=== PATIENT | female | born 1960 | race Caucasian/White ===

== ENCOUNTER 2021-02-27 15:47 | Emergency (ER) | payer MEDICAID ==
[~2021-02-27] VITALS: Ht 172.7 cm; Wt 81.6 kg
[~2021-02-27 15:47] MED LIST: BACL10TA PO; HYDR12.56 PO; NITR100C6 PO; PANT40T PO; SIMV-13 PO; SUCR1TAB22 OR
[2021-02-28] MEDS ORDERED: ACETAMINOPHEN 500 MG TAB PO ONE (10:15)
[2021-02-28 18:25] VITALS: BP 150/44
== END 2021-02-28 20:50 | disposition home or self-care (01) ==
LOC: EDBD 15:47 → ER 15:47
DX: S50.311A Abrasion of right elbow, initial encounter (principal); Z79.899 Other long term (current) drug therapy; Z88.0 Allergy status to penicillin; Z88.5 Allergy status to narcotic agent; Z88.6 Allergy status to analgesic agent; W19.XXXA Unspecified fall, initial encounter; Y93.89 Activity, other specified; Y92.89 Other specified places as the place of occurrence of the external cause; Y99.8 Other external cause status
CPT/HCPCS: 73080

== ENCOUNTER 2023-04-21 10:10 | Emergency (ER) | payer MEDICAID ==
[~2023-04-21] VITALS: Ht 167.6 cm; Wt 90.9 kg
[~2023-04-21 10:10] MED LIST changes: -HYDR12.56 PO; +HYDR12.59 PO; -SIMV-13 PO; +SIMV40TA18 PO
[2023-04-21 10:38] VITALS: RESP 16
[2023-04-21] MEDS ORDERED: LIDOCAINE W/ EPINEPHRINE 1% 20ML VIAL ONE (10:39)
[2023-04-21] MEDS ORDERED: LIDOCAINE W/ EPINEPHRINE 1% 20ML VIAL ID ONE (10:45)
[2023-04-21 11:24] VITALS: BP 158/109; PULSE 75; RESP 16; TEMP 98.6; O2SAT 96
[2023-04-21] MEDS ORDERED: IBUPROFEN 800 MG TAB PO ONE (15:00)
[2023-04-21] MEDS ORDERED: ACETAMINOPHEN 500 MG TAB PO ONE (15:00)
== END 2023-04-21 14:41 | disposition home or self-care (01) ==
LOC: ER 10:10 → EDBD 10:10 → ER 14:41
DX: S01.01XA Laceration without foreign body of scalp, initial encounter (principal); S01.21XA Laceration without foreign body of nose, initial encounter; S01.81XA Laceration without foreign body of other part of head, initial encounter; M19.90 Unspecified osteoarthritis, unspecified site; E78.5 Hyperlipidemia, unspecified; I10 Essential (primary) hypertension; Z88.0 Allergy status to penicillin; Z88.8 Allergy status to other drugs, medicaments and biological substances; Z88.5 Allergy status to narcotic agent; Z79.899 Other long term (current) drug therapy; V89.2XXA Person injured in unspecified motor-vehicle accident, traffic, initial encounter; Y93.89 Activity, other specified; Y92.89 Other specified places as the place of occurrence of the external cause; Y99.8 Other external cause status
CPT/HCPCS: 12055; 99152; 99153

== ENCOUNTER 2023-04-23 09:18 | Emergency (ER) | payer MEDICAID ==
[~2023-04-23] VITALS: Ht 170.2 cm; Wt 102.1 kg
[2023-04-23 09:39] VITALS: BP 144/90; PULSE 61; RESP 16
[2023-04-23 10:44] VITALS: O2SAT 98
== END 2023-04-23 10:47 | disposition home or self-care (01) ==
LOC: ER 09:18
DX: S01.81XD Laceration without foreign body of other part of head, subsequent encounter (principal); I10 Essential (primary) hypertension; E78.5 Hyperlipidemia, unspecified; Z79.899 Other long term (current) drug therapy; Z88.0 Allergy status to penicillin; Z88.5 Allergy status to narcotic agent; Z88.6 Allergy status to analgesic agent; X58.XXXD Exposure to other specified factors, subsequent encounter

== ENCOUNTER 2023-04-28 09:55 | Emergency (ER) | payer MEDICAID ==
[~2023-04-28] VITALS: Ht 213.4 cm; Wt 101.8 kg
[2023-04-28 10:12] VITALS: BP 123/70; PULSE 59; RESP 18; TEMP 98.1; O2SAT 95
== END 2023-04-28 10:29 | disposition home or self-care (01) ==
LOC: ER 09:55
DX: S01.81XD Laceration without foreign body of other part of head, subsequent encounter (principal); E78.5 Hyperlipidemia, unspecified; I10 Essential (primary) hypertension; Z88.0 Allergy status to penicillin; Z88.6 Allergy status to analgesic agent; X58.XXXD Exposure to other specified factors, subsequent encounter

== ENCOUNTER 2025-06-20 14:48 | Inpatient (IN) | payer MEDICAID, OTHER ==
[~2025-06-20] VITALS: Ht 170.2 cm; Wt 110.0 kg
[~2025-06-20 14:48] MED LIST changes: -SUCR1TAB22 OR; +SUCR1TAB31 OR
--- NOTE | 2025-06-20 15:05 | ECG ---
[facility] Test Date: 2025-06-20 Test Time: 14:59:20 Pat Name: LUDWIN TRIANA Department: Room: Gender: F [place] Pinner: ER : 1960 Requested By: DORIS HOLCOMB Order Number: [id number] Reading MD: Measurements Intervals [place] Rate: 58 P: 24 FL: 160 QRS: 41 QRSD: 106 T: 15 QT: 441 QTc: 434 Interpretive Statements Sinus rhythm RSR' in V1 or V2, right VCD or RVH Please click the below link to view image of tracing.
--- NOTE | 2025-06-20 15:18 | ED.PDOC ---
HPI (NEURO) HPI Comments 65-year-old female who presents to the ED with c/c of unsteady gait Patient states that earlier this afternoon she was dizzy unsteady on her feet tripped and fell Patient states that she fell backwards and hit the posterior head Patient denies any associated off of consciousness Patient states she has since been having associated dizziness and was brought by friend to the ED Patient in the ED noted to have a bleeding from posterior scalp region with now bleeding controlled patient otherwise states she has been unsteady on her feet and states that she has had 6 episodes of unsteady gait in the past 6 weeks Patient states she has not seen primary care or any provider for these symptoms Patient in the ED otherwise has not noted blood pressure 142/69 heart rate 58 but otherwise stable vitals including temperature 97.2 F respiratory me 18 and O2 saturation of 96% on room air Patient had the ED with the was alert and oriented x4 and able to answer all qu estions Past Medical history: HTN, Hyperlipidemia, arthritis Past Surgical history: Right and left knee surgery, shoulder surgery, Medications: denies Allergies: aspirin, codeine, penicillins Social history: denies ETOH, denies tobacco use, denies drug use TRIANA: DIZZY. HPI: Poor Historian. Past Medical History: Past Surgical History: REVIEW OF SYSTEMS: CONSTITUTIONAL: Denies acute: fever, diaphoresis, chills, generalized weakness HEAD: Denies acute: headache, photophobia Eyes: Denies acute: Double vision, vision loss, eye pain, eye discharge. EARS: Denies acute: tinnitus, hearing loss, ear discharge, ear pain, THROAT: Denies acute: sore throat, swelling, difficulty swallowing , pain with swallowing, change in voice. NECK: Denies acute: neck pain, neck swelling, stiff neck. HEART: Denies acute : chest pain, palpitations, LUNGS: Denies acute: SOB, wheezing, cough, hemoptysis ABDOMEN: Denies acute: abdominal pain, nausea, vomiting diarrhea, melena , hematemesis, hematochezia SKIN: Denies acute: rash, redness, lesions, itchiness. EXTREMITIES: Denies acute: calf pain, numbness, tingling, weakness, denies pain in extremity. Denies acute: Low back pain. Neuro: Denies acute: focal neurological deficit, motor or sensory focal neurological deficit, tremors, seizure like activity, confusion, dizziness, change in mental status, loss of bowel or bladder function, cauda equina like symptoms. : Denies acute: dysuria, hematuria, flank pain, increase in urinary frequency. PSYCH: Denies acute: hallucination, suicidal ideation, homicidal ideation. PHYSICAL EXAM: General: ----no----acute distress, awake and alert. Head: normocephalic,. Patient has a occipital small scalp laceration. Cervical spine: Palpation of the posterior midline of the cervical spine reveals no focal swelling, erythema, focal tenderness to palpation. Patient has normal range of motion. Neck: supple, trachea is midline, no swelling. Throat: Normal phonation. Eyes:, no erythema, no purulent discharge, no proptosis, no icterus. Heart: regular rate, regular rhythm, no significant murmur appreciated. Lungs: no apparent respiratory distress, Able to speak in full sentences. No wheezing, no rhonchi, no crackles. No stridors Clear to auscultation bilaterally. Abdomen: non tender to palpation, non distended, soft, no guarding, no rebound, + bowel sounds. Obese Neuro: Awake, Alert, oriented to name, self, situation, follows commands GCS=15. Speech is normal. Skin: no petechia, no purpura, no cyanosis, non-pale, not jaundice. Lower extremities: --trace bilateral- Pitting edema no deformity, no focal swelling, no calf TTP. Makes eye contact. moves all four extremities. Face: no apparent facial droop. Ambulating in the ED independently. PERRLA, EOM-I CN 2-12 are grossly intact, No nystagmus. No nuchal rigidity, Kernig's sign, Brudzinski's sign, no meningeal signs. ED COURSE: DISCLAIMER: This medical document was created using an electronic medical record system with voice recognition software and computerized dictation system. Although this document has been carefully reviewed, there might still be some phonetic and typographical errors. Occasional wrong-word or "sound-alike" substitutions may have occurred due to the inherent limitations of voice recognition software. These areas are purely typographical due to imperfections of the software programs and do not reflect any compromise in the patient's medical care. Please read the chart carefully and recognize, using context, where these substitutions have occurred. Chief Complaint: Dizziness Time Seen by MD: 15:17 Primary Care Provider: CHRISTY Reviewed Notes: Medications, Allergies Information Source: Patient, Friend Mode of Arrival: Ambulatory Past Medical History PAST MEDICAL HISTORY: Arthritis, High Lipids, HTN Surgical History: Denies all surgeries ARCHITECTURAL COATING FINISHER History: No Pertinent ARCHITECTURAL COATING FINISHER History Family History Family History: Reviewed,noncontributory to illness Social History Smoker: Non-Smoker Alcohol: Denies ETOH Use Drugs: Denies Drug Use Lives In: Home EKG EKG : Pulse Rate (adult): 58 [place]: Normal Cardiac Rhythm: NSR Block: None Hypertrophy: None ST: Normal Comments T-wave inversion lead 3 Was a procedure done? Was a procedure done?: Yes Sedation Sedation?: No Other Procedure Procedure suture placement for 3 cm laceration to posterior head Indication laceration to posterior head Prep wound to posterior head has been cleaned with normal saline and pat dried. 3 sutures placed Success Patient tolerated well, bleeding under control. Informed consent obtained: Yes Risks, benefits, and alternati: Yes X-Ray, Labs, Meds, VS Vital Signs Date Time Temp Pulse Resp B/P (MAP) Pulse Ox O2 Delivery O2 Flow Rate FiO2 06/20/25 21:07 145/80 (101) 06/20/25 20:27 98.1 46 16 171/73 (105) 96 98.1 06/20/25 16:29 98.9 53 18 152/78 (102) 96 98.9 06/20/25 15:18 58 06/20/25 14:59 58 06/20/25 14:49 97.2 58 18 142/69 96 97.2 Lab Test 06/20/25 20:55 06/20/25 17:23 06/20/25 15:55 06/20/25 15:03 Range/Units Prothrombin Time Pending Prothrombin Time INR Pending Activated Partial Thromboplast Time Pending Hemoglobin A1c Pending Phosphorus Level Pending Magnesium Level Pending Troponin I High Sensitivity 5 5 </=34 ng/L C-Reactive Protein High Sensitivity Pending Triglycerides Level Pending Cholesterol Level Pending LDL Cholesterol Pending HDL Cholesterol Pending Lipase Pending Vitamin B12 Level Pending Vitamin D 25-Hydroxy Pending Thyroid Stimulating Hormone (TSH) Pending White Blood Count 8.0 4.4-10.8 10^3/uL Red Blood Count 4.87 4.0-5.20 10^6/uL Hemoglobin 14.3 12.2-16.2 g/dL Hematocrit 41.2 36.0-46.0 % Mean Corpuscular Volume 84.6 80.0-100.0 fL Mean Corpuscular Hemoglobin 29.3 28.0-32.0 pg Mean Corpuscular Hemoglobin Concent 34.6 32.0-36.0 g/dL Red Cell Distribution Width 14.4 H 11.8-14.3 % Platelet Count 228 140-450 10^3/uL Mean Platelet Volume 8.7 6.9-10.8 fL Neutrophils (%) (Auto) 73.7 37.0-80.0 % Lymphocytes (%) (Auto) 14.3 10.0-50.0 % Monocytes (%) (Auto) 9.4 0.0-12.0 % Eosinophils (%) (Auto) 2.1 0.0-7.0 % Basophils (%) (Auto) 0.5 0.0-2.0 % Neutrophils # (Auto) 5.9 1.6-8.6 10 ^3/uL Lymphocytes # (Auto) 1.1 0.4-5.4 10 ^3/uL Monocytes # (Auto) 0.7 0-1.3 10 ^3/uL Eosinophils # (Auto) 0.2 0-0.8 10 ^3/uL Basophils # (Auto) 0 0-0.2 10 ^3/uL Nucleated Red Blood Cells 0.0 % Sodium Level 142 136-145 mmol/L Potassium Level 3.9 3.5-5.1 mmol/L Chloride Level 102 98-107 mmol/L Carbon Dioxide Level 30 20-31 mmol/L Anion Gap 10 5-15 Blood Urea Nitrogen 14 9-23 mg/dL Creatinine 0.94 0.550-1.02 mg/dL Glomerular Filtration Rate Calc 67 >90 mL/min BUN/Creatinine Ratio 14.9 10.0-20.0 Serum Glucose 104 74-106 mg/dL Calcium Level 10.2 8.7-10.4 mg/dL Total Bilirubin 0.5 0.2-1.0 mg/dL Aspartate Amino Transferase (AST) 37 13-40 U/L Alanine Aminotransferase (ALT) 41 H 7-40 U/L Alkaline Phosphatase 71 46-116 U/L Total Protein 7.3 5.7-8.2 g/dL Albumin 4.5 3.2-4.8 g/dL POC Glucose 103 70-106 mg/dl Test 06/20/25 14:58 Range/Units Urine Color Yellow Yellow Urine Clarity Turbid H Clear Urine pH 6.0 5.0-9.0 Urine Specific [place] 1.029 1.001-1.035 Urine Protein 1+ H Negative Urine Ketones Negative Negative Urine Blood Negative Negative /uL Urine Nitrite Negative Negative Urine Bilirubin Negative Negative Urine Urobilinogen Normal Negative mg/dL Urine Leukocyte Esterase 3+ Negative /uL Urine RBC 15 0 - 4 /hpf Urine Microscopic WBC 45 H 0-5 /HPF Urine Squamous Epithelial Cells Few <5 /hpf Urine Bacteria None seen None Seen /hpf Urine Hyaline Casts Few 0 - 2 /lpf Urine Mucus Few None Seen Urine Glucose Normal Normal mg/dL Current Medications Medications (Trade) Dose Ordered Sig/Candy Route Start Time Stop Time Status Last Admin Ceftriaxone Sodium 50 ml @ 100 mls/hr ONCE ONCE IV 06/20/25 16:30 06/20/25 16:59 DC 06/20/25 18:01 Acetaminophen/ Hydrocodone Bitart ([place] 5/325MG Tab) 1 tab ONCE ONCE PO 06/20/25 18:30 06/20/25 18:31 DC 06/20/25 18:33 [place] [address] Ph: [phone] DIAGNOSTIC IMAGING Diagnostic Imaging Report : [id number] Signed PATIENT: LUDWIN TRIANA ACCT: [id number] UNIT: [id number] : 1960 LOC: ER ROOM / BED: / AGE / SEX: 65 / F ADM STATUS: REG ER SERVICE [id number] ORDERING PHYSICIAN: DORIS HOLCOMB DO PROCEDURE(s): HWOCT - HEAD WITHOUT CONTRAST REASON: FALL, DIZZY, HEAD INJURY ORDER NUMBER(s): [id number], ACCESSION NUMBER(s): [id number] EXAM: CT HEAD WITHOUT CONTRAST INDICATION: FALL, DIZZY, HEAD INJURY TECHNIQUE: CT images of the head were obtained without administration of IV contrast. CT scans at this facility use dose modulation, iterative reconstruction, and/or weight based dosing when appropriate to reduce radiation dose to as low as reasonably achievable. COMPARISON: None FINDINGS: PARENCHYMA: No acute hemorrhage. There is no mass effect, midline shift, or herniation. There is preservation of the taylor white differentiation. Mild scattered hypoattenuation along the periventricular, centrum semiovale, and deep white matter tracts, which are nonspecific however statistically most likely represent chronic microvascular ischemic change. VENTRICLES: No hydrocephalus. EXTRA-AXIAL SPACES: No extra-axial fluid collections. OTHER: The bony structures are intact. Visualized portions of the paranasal sinuses and mastoid air cells are clear. IMPRESSION: 1. No CT evidence of an acute intracranial abnormality. ATED BY: JUAN POLLARD MD DICTATED DATE/TIME: 06/20/251536 SIGNED BY: JUAN POLLARD MD SIGNED DATE/TIME: 06/20/25 1537 CC: [place] [address] Ph: [phone] DIAGNOSTIC IMAGING Diagnostic Imaging Report : [id number] Signed PATIENT: LUDWIN TRIANA ACCT: [id number] UNIT: [id number] : 1960 LOC: ER ROOM / BED: / AGE / SEX: 65 / F ADM STATUS: REG ER SERVICE 1502 ORDERING PHYSICIAN: DORIS HOLCOMB DO PROCEDURE(s): CS2 - CERVICAL WITHOUT CONTRAST REASON: FALL ORDER NUMBER(s): [id number], ACCESSION NUMBER(s): [id number] EXAM: CT CERVICAL WITHOUT CONTRAST INDICATION: FALL EXAM DATE: 06/20/2025 03:07 PM COMPARISON: None TECHNIQUE: Multiple axial CT images of the cervical spine were obtained using bone algorithm. Axial and coronal reformatting was done. Bone and soft tissue windows were reviewed. Radiation Dose Information: CT Dose: CTDI volume is 26.88 mGy. Dose-length product is 595.13 mGy*cm Findings: There is no evidence of an acute fracture or spondylolisthesis. The vertebral body heights are well-maintained. The craniocervical junction and dens are intact. Mild spondylosis. No spinal canal stenosis. There is flattening of the cervical lordosis. The thyroid gland is unremarkable. The lung apices demonstrate no acute abnormality. The paraspinal and neck soft tissues appear within normal limits. Impression: 1. No evidence of an acute fracture. ATED BY: CONCHA SOMERS DO DICTATED DATE/TIME: 06/20/251542 SIGNED BY: CONCHA SOMERS DO SIGNED DATE/TIME: 06/20/251542 CC: Patient Education/Counseling: Diagnosis, Treatment Family Education/Counseling: Diagnosis, Treatment Departure 1 Departure Time of Disposition: 15:51 Impression: Primary Impression: Unsteady gait Additional Impressions: Frequent falls Closed head injury UTI (urinary tract infection) Scalp laceration Disposition: ADMITTED INPATIENT Admit to: [facility] Condition: Guarded Discharged With: Self Critical Care Note Critical Care Time?: No Heart Score Heart Score: Heart Score Response (Comments) Value History Moderate Suspicious 1 EKG Normal 0 Age >65 2 Risk Factors 1 or 2 risk factors 1 Total 4 I personally scribed for DORIS HOLCOMB DO ([email or web address]) on 06/20/25 at 15:18. Electronically submitted by Angie Emanuel (RADHA). I personally scribed for DORIS HOLCOMB DO ([email or web address]) on 06/20/25 at 16:06. Electronically submitted by Angie Emanuel (RADHA). I personally scribed for DORIS HOLCOMB DO ([email or web address]) on 06/20/25 at 16:29. Electro nically submitted by Angie Emanuel (RADHA). I personally scribed for DORIS HOLCOMB DO ([email or web address]) on 06/20/25 at 18:24. Letty ctronically submitted by Glen Almendarez ([facility]3]). I personally scribed for DORIS HOLCOMB DO ([email or web address]) on 06/20/25 at 19:35. Electronically submitted by Angie MOSELEY). I personally scribed for DORIS HOLCOMB DO ([email or web address]) on 06/20/25 at 21:24. Electronically submitted by Angie Emanuel (RADHA). DORIS HOLCOMB DO Jun 20, 2025 15:18
--- NOTE | 2025-06-20 15:39 | DVH ---
EXAM: CT HEAD WITHOUT CONTRAST INDICATION: FALL, DIZZY, HEAD INJURY TECHNIQUE: CT images of the head were obtained without administration of IV contrast. CT scans at [facility] facility use dose modulation, iterative reconstruction, and/or weight based dosing when appropriate to reduce radiation dose to as low as reasonably achievable. COMPARISON: None FINDINGS: PARENCHYMA: No acute hemorrhage. There is no mass effect, midline shift, or herniation. There is pres ervation of the taylor white differentiation. Mild scattered hypoattenuation along the periventricular, centrum semiovale, and deep white matter tracts, which are nonspecific however statistically most li jarrett represent chronic microvascular ischemic change. VENTRICLES: No hydrocephalus. EXTRA-AXIAL SPACES: No extra-axial fluid collections. OTHER: The bony structures are intact. Visualized portions of the paranasal sinuses and mastoid air cells are clear. IMPRESSION: 1. No CT evidence of an acute intracranial abnormality.
--- NOTE | 2025-06-20 15:44 | DVH ---
EXAM: CT CERVICAL WITHOUT CONTRAST INDICATION: FALL EXAM DATE: 06/20/2025 03:07 PM COMPARISON: None TECHNIQUE: Multiple axial CT images of the cervical spine were obtained using bone algorithm. Axial a nd coronal reformatting was done. Bone and soft tissue windows were reviewed. Radiation Dose Information: CT Dose: CTDI volume is 26.88 mGy. Dose-length product is 595.13 mGy*cm Findings: There is no evidence of an acute fracture or spondylolisthesis. The vertebral body heights are well-m aintained. The craniocervical junction and dens are intact. Mild spondylosis. No spinal canal stenosis. There is flattening of the cervical lordosis. The thyroid gland is unremarkable. The lung apices demonstrate no acute abnormality. The paraspinal a nd neck soft tissues appear within normal limits. Impression: 1. No evidence of an acute fracture.
[2025-06-20 15:55] LABS: Urine Protein, UAD 1+ (Negative)
[2025-06-20 16:09] LABS: Hematocrit 41.2 % (36.0-46.0); Hemoglobin 14.3 g/dL (12.2-16.2); Mean Corpuscular Hemoglobin 29.3 pg (28.0-32.0); Mean Corpuscular Volume 84.6 fL (80.0-100.0); Nucleated Red Blood Cells % 0.0 %
[2025-06-20 16:23] LABS: Albumin 4.5 g/dL (3.2-4.8); Alkaline Phosphatase 71 U/L (46-116); Anion Gap 10 (5-15); BUN/Creatinine Ratio 14.9 (10.0-20.0); Blood Urea Nitrogen 14 mg/dL (9-23); Calcium 10.2 mg/dL (8.7-10.4); Carbon Dioxide 30 mmol/L (20-31); Chloride 102 mmol/L (98-107); Glucose 104 mg/dL (74-106); Potassium 3.9 mmol/L (3.5-5.1); Sodium 142 mmol/L (136-145); Total Protein 7.3 g/dL (5.7-8.2)
[2025-06-20 16:24] LABS: Bilirubin, Total 0.5 mg/dL (0.2-1.0)
[2025-06-20 16:27] LABS: Alanine Aminotransferase 41 U/L (7-40)
[2025-06-20] MEDS: HYDROcodone-ACET 5/325MG TAB PO ONE (18:33)
[2025-06-20] MEDS ORDERED: HYDROcodone-ACET 5/325MG TAB PO PRN (21:45)
[2025-06-20 21:52] LABS: Magnesium 2.1 mg/dL (1.6-2.6); Triglycerides 69.0 mg/dL (< 150)
[2025-06-20 21:53] LABS: INR 0.97 (0.9-1.15); Partial Thromboplastin Time 23.0 SEC (24.5-34.5); Prothrombin Time 10.3 sec (9.3-11.8)
[2025-06-20 21:55] LABS: Cholesterol 202.0 mg/dL (< 200); HDL Cholesterol 80.0 mg/dL (40-59)
[2025-06-20 22:05] LABS: Lipase 32.0 U/L (12-53)
[2025-06-20 22:16] VITALS: PULSE 54; RESP 17; O2SAT 98
[2025-06-20 22:50] LABS: Amphetamine Screen, Urine Neg (NEGATIVE); Barbiturate Scree,Urine Neg (NEGATIVE); Benzodiazephine Screen, Urine Neg (NEGATIVE); Cannabinoid Screen, Urine Neg (NEGATIVE); Cocaine Screen, Urine Neg (NEGATIVE); Opiate Scree,Urine Neg (NEGATIVE); Phencyclidine Screen, Urine Neg (NEGATIVE)
[2025-06-20] MEDS: hydrALAZINE HCL 20 MG/ML VL IV ONE (22:57)
--- NOTE | 2025-06-20 23:02 | DVH ---
Carotid Duplex Clinical History: Presyncope Comparison: None Technique: Duplex doppler evaluation of the extracranial carotid and vertebral arteries including color doppler and spectral/pulsed waveform analysis was performed. Findings: RIGHT SIDE: The peak systolic velocities are 69 cm/s in the CCA, 88 cm/s in the ICA. The ICA/CCA ratio is 1.3. The external carotid artery is patent with peak systolic velocity of 51 cm/s proximally. There is appropriate antegrade flow in the right vertebral artery. LEFT SIDE: The peak systolic velocities are 71 cm/s in the CCA, 78 cm/s in the ICA. The ICA/CCA ratio is 1.1. The external carotid artery is patent with peak systolic velocity of 46 cm/s proximally. There is appropriate antegrade flow in the left vertebral artery. IMPRESSION: No hemodynamically significant stenosis noted in the right carotid system. No hemodynamically significant stenosis noted in the left carotid system. Reference: Radiology 2003; 229:340-346 Normal ICA PSV is <125 cm/sec and no plaque or intimal thickening is visible sonographically addition al criteria include ICA/CCA PSV ratio <2.0 and ICA EDV <40 cm/sec <50% ICA stenosis ICA PSV is <125 cm/sec and plaque or intimal thickening is visible sonographically additional criteria include ICA/CCA PSV ratio <2.0 and ICA EDV <40 cm/sec 50-69% ICA stenosis ICA PSV is 125-230 cm/sec and plaque is visible sonographically additional criter ia include ICA/CCA PSV ratio of 2.0-4.0 and ICA EDV of 40-100 cm/sec 70% ICA stenosis but less than near occlusion ICA PSV is >230 cm/sec and visible plaque and luminal n arrowing are seen at taylor-scale and color doppler ultrasound (the higher the doppler parameters lie a saroj the threshold of 230 cm/sec, the greater the likelihood of severe disease) additional criteria i nclude ICA/CCA PSV ratio >4 and ICA EDV >100 cm/sec
[2025-06-20] MEDS: MEROPENEM 1GM IVPB 50 ML IV SCH (23:08)
[2025-06-20] MEDS: SODIUM CHLORIDE 0.9% 1,000 ML IV SCH (23:36)
[2025-06-21] VITALS (12 sets, daily range): BP systolic 112–150; BP diastolic 64–96; PULSE 47–60; RESP 14–18; TEMP 97.5–98.1; O2SAT 93–99
[2025-06-21] MEDS ORDERED: ONDANSETRON HCL 4 MG/2 ML VIAL IV PRN (00:15)
--- NOTE | 2025-06-21 00:38 | DVHHPRES ---
History of Present Illness Resident Creating Document: KALPESH WOLFF RESIDENT History of Present Illness This is a 65-year-old female with past medical history of hyperlipidemia, hypertension, gastritis, LISA, presented to the ER after sustaining a fall due to lightheadedness. She complained of intermittent lightheadedness starting 6 weeks ago, described 'everything around her moving in circles', without any aggravating or relieving factors. She had braced multiple falls in past. Yesterday, she was unable to brace her fall and hit her head on the floor, causing a laceration injury. She also complains of burning micturition and reports intermittent history of dysuria for several years, relieved with antibiotic therapy. Her most recent UTI was treated with Nitrofurantoin for 7 days with PCP. She also reports of episodic headaches that started after a fall injury in March 2022. Headaches are described as constant, pounding headache in frontal or temporal region of head, associated with occasional mild photophobia and tearing from her both eyes. She denies fever, chills, nausea, vomiting, neck rigidity, sick contact, chest pain or palpitations. Denies history of migraine. 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 Denies alcohol or recreational drug use. Not currently sexually active. Full code. Next of kin: sister Hermila Home medication: Baclofen, hydrochlorothiazide 12.5, pantoprazole, simvastatin, metoprolol succinate (started 2 months ago) Allergic history: Aspirin, codeine, penicillins Patient was examined at bedside today. Vitals show bradycardia. Patient is admitted for further evaluation and management. Review of Systems Eyes: Other Cardiovascular: Lt Headedness Genitourinary: Dysuria Musculoskeletal: other Neurological: Other (Headache) Allergies: Coded Allergies: Aspirin (Verified Allergy, Severe, 11/20/19) Codeine (Verified Allergy, Severe, 11/20/19) Penicillins (Verified Allergy, Severe, 11/20/19) Medications Current Medications Medications Dose Ordered Sig/Candy Route Start Time Stop Time Status Last Admin Dose Admin Meropenem 50 ml @ 17 mls/hr Q8HR IV 06/20/25 22:00 06/20/25 23:08 17 MLS/HR Acetaminophen/ Hydrocodone Bitart 1 tab Q4HPRN PRN PO 06/20/25 21:45 Sodium Chloride 1,000 ml @ 125 mls/hr Q8H IV 06/20/25 21:45 06/20/25 23:36 125 MLS/HR Hydrochlorothiazide 12.5 mg DAILY PO 06/21/25 10:00 Pantoprazole Sodium 40 mg DAILY@0600 PO 06/22/25 06:00 Atorvastatin Calcium 40 mg HS PO 06/21/25 22:00 Exam Vital Signs Vital Signs Date Time Temp Pulse Resp B/P (MAP) Pulse Ox O2 Delivery O2 Flow Rate FiO2 06/20/25 22:57 139/74 06/20/25 22:56 98.1 47 18 94 98.1 06/20/25 22:16 Room Air* 0 21 21 Exam General: Patient alert and oriented in person, place and time. Patient following commands. HEENT: Scalp laceration 2X1 cm with stapler stitches. Normocephalic, atraumatic, dry mucous membranes. Respiratory/pulmonary: Clear lungs bilaterally, vesicular murmurs present in almost all lung kam, no associated crackles or wheezes. Cardiovascular: Normal heart sounds S1 and S2 with no associated murmurs Abdomen: Abdomen nondistended, there is no pain to palpation in any of the abdominal quadrants, no palpable masses. Extremities: There is no peripheral edema present at the lower extremities. Peripheral Pulses: 3+ Radial (R). 3+ Radial (L). 3+ Dorsalis pedis (R). 3+ Dorsalis pedis(L) Skin: No rashes or pruritus, there is no sacral edema present at this time. Neurological: 5/5 motor strength in bilateral upper and lower extremities. Intact cranial nerves with no focal neurologic deficits. Labs/Xrays Labs Test 06/20/25 20:55 06/20/25 17:23 06/20/25 15:55 06/20/25 15:03 Range/Units Prothrombin Time 10.3 9.3-11.8 sec Prothrombin Time INR 0.97 0.9-1.15 Activated Partial Thromboplast Time 23.0 L 24.5-34.5 SEC Hemoglobin A1c 5.5 <5.7 % A1C Phosphorus Level 3.4 2.4-5.1 mg/dL Magnesium Level 2.1 1.6-2.6 mg/dL Troponin I High Sensitivity 5 </=34 ng/L C-Reactive Protein High Sensitivity 0.31 <1.0 mg/dL Triglycerides Level 69 < 150 mg/dL Cholesterol Level 202 H < 200 mg/dL LDL Cholesterol 115 H < 100 mg/dL HDL Cholesterol 80 H 40-59 mg/dL Lipase 32 12-53 U/L Vitamin B12 Level 469 211-911 pg/mL Vitamin D 25-Hydroxy 51.8 30.0-100 ng/mL Thyroid Stimulating Hormone (TSH) 1.64 0.55-4.78 uIU/mL White Blood Count 8.0 4.4-10.8 10^3/uL Red Blood Count 4.87 4.0-5.20 10^6/uL Hemoglobin 14.3 12.2-16.2 g/dL Hematocrit 41.2 36.0-46.0 % Mean Corpuscular Volume 84.6 80.0-100.0 fL Mean Corpuscular Hemoglobin 29.3 28.0-32.0 pg Mean Corpuscular Hemoglobin Concent 34.6 32.0-36.0 g/dL Red Cell Distribution Width 14.4 H 11.8-14.3 % Platelet Count 228 140-450 10^3/uL Mean Platelet Volume 8.7 6.9-10.8 fL Neutrophils (%) (Auto) 73.7 37.0-80.0 % Lymphocytes (%) (Auto) 14.3 10.0-50.0 % Monocytes (%) (Auto) 9.4 0.0-12.0 % Eosinophils (%) (Auto) 2.1 0.0-7.0 % Basophils (%) (Auto) 0.5 0.0-2.0 % Neutrophils # (Auto) 5.9 1.6-8.6 10 ^3/uL Lymphocytes # (Auto) 1.1 0.4-5.4 10 ^3/uL Monocytes # (Auto) 0.7 0-1.3 10 ^3/uL Eosinophils # (Auto) 0.2 0-0.8 10 ^3/uL Basophils # (Auto) 0 0-0.2 10 ^3/uL Nucleated Red Blood Cells 0.0 % Sodium Level 142 136-145 mmol/L Potassium Level 3.9 3.5-5.1 mmol/L Chloride Level 102 98-107 mmol/L Carbon Dioxide Level 30 20-31 mmol/L Anion Gap 10 5-15 Blood Urea Nitrogen 14 9-23 mg/dL Creatinine 0.94 0.550-1.02 mg/dL Glomerular Filtration Rate Calc 67 >90 mL/min BUN/Creatinine Ratio 14.9 10.0-20.0 Serum Glucose 104 74-106 mg/dL Calcium Level 10.2 8.7-10.4 mg/dL Total Bilirubin 0.5 0.2-1.0 mg/dL Aspartate Amino Transferase (AST) 37 13-40 U/L Alanine Aminotransferase (ALT) 41 H 7-40 U/L Alkaline Phosphatase 71 46-116 U/L Total Protein 7.3 5.7-8.2 g/dL Albumin 4.5 3.2-4.8 g/dL POC Glucose 103 70-106 mg/dl Test 06/20/25 14:58 Range/Units Urine Color Yellow Yellow Urine Clarity Turbid H Clear Urine pH 6.0 5.0-9.0 Urine Specific [place] 1.029 1.001-1.035 Urine Protein 1+ H Negative Urine Ketones Negative Negative Urine Blood Negative Negative /uL Urine Nitrite Negative Negative Urine Bilirubin Negative Negative Urine Urobilinogen Normal Negative mg/dL Urine Leukocyte Esterase 3+ Negative /uL Urine RBC 15 0 - 4 /hpf Urine Microscopic WBC 45 H 0-5 /HPF Urine Squamous Epithelial Cells Few <5 /hpf Urine Bacteria None seen None Seen /hpf Urine Hyaline Casts Few 0 - 2 /lpf Urine Mucus Few None Seen Urine Glucose Normal Normal mg/dL Urine Opiates Screen Neg NEGATIVE Urine Fentanyl Screen Neg NEGATIVE Urine Barbiturates Screen Neg NEGATIVE Urine Phencyclidine Screen Neg NEGATIVE Urine Amphetamines Screen Neg NEGATIVE Urine Benzodiazepines Screen Neg NEGATIVE Urine Cocaine Screen Neg NEGATIVE Urine Cannabinoids Screen Neg NEGATIVE SEPSIS Sepsis Screen Date sepsis recognized/suspect: Jun 20, 2025 Time Sepsis recognized/suspect: 2217 Recent Procedure: No On Antibiotic Therapy: No Respiratory Rate >20: No Heart Rate >90: No Temp<36 C (96.8 F) or >38.3 C: No SBP <90 or MAP <65 mmHG: No New Acute Mental Status Change: No Is the patient on CPAP, BIPAP,: No Physician Orders Complete Blood Count (06/21/25 04:00) Basic Metabolic Panel (06/21/25 04:00) Meropenem 1gm Ivpb (Merrem 1gm/50ml) (06/20/25 22:00) Hydrocodone-Acet 5/325mg Tab (Galvin 5/32 (06/20/25 21:45) Urine Bacterial Culture (06/20/25 21:43) Blood Culture (06/20/25 21:43) Orthostatic Vital Signs (06/20/25 ) Echo 2d Mode Cardiac Dop (06/20/25 21:43) Carotid Duplx W Color Dop (06/20/25 21:43) Sodium Chloride 0.9% (06/20/25 21:45) Hydrochlorothiazide Tablet (Hydrochlorot (06/21/25 10:00) Atorvastatin (Lipitor) (06/21/25 22:00) Pantoprazole Tablet (Protonix Tablet) (06/22/25 06:00) Admit (06/21/25 00:06) Allergies (06/21/25 00:06) Code Status (06/21/25 00:06) Ondansetron Hcl (Zofran) (06/21/25 00:15) Fall Risk Precautions In Place QSHIFT (06/21/25 00:06) Cardiac Diet-2gna,Lofat,Lochol (06/21/25 Breakfast) Condition: Serious (06/21/25 00:06) Lovenox 40mg (06/21/25 00:15) Oxygen By Nasal Cannula (06/21/25 00:06) Stat Ekg For Chest Pain (06/21/25 00:06) Notify Md Of Changes From Base (06/21/25 00:06) Manager Wastewater For 24 Hours (06/21/25 00:06) Emergency Dysrhythmia Protocol (06/21/25 00:06) Rhythm Strips Once Every Shift (06/21/25 00:06) Vital Signs Date Time Temp Pulse Resp B/P (MAP) Pulse Ox O2 Delivery O2 Flow Rate FiO2 06/20/25 22:57 139/74 06/20/25 22:56 98.1 47 18 139/74 (95) 94 98.1 06/20/25 22:16 54 17 98 Room Air* 0 21 21 06/20/25 21:07 145/80 (101) 06/20/25 20:27 98.1 46 16 171/73 (105) 96 98.1 06/20/25 16:29 98.9 53 18 152/78 (102) 96 98.9 Laboratory Tests Test 06/20/25 15:55 White Blood Count 8.0 10^3/uL (4.4-10.8) Medications Medications Dose Ordered Sig/Candy Route Start Time Stop Time Status Last Admin Dose Admin Acetaminophen/ Hydrocodone Bitart 1 tab ONCE ONCE PO 06/20/25 18:30 06/20/25 18:31 DC 06/20/25 18:33 1 TAB Ceftriaxone Sodium 50 ml @ 100 mls/hr ONCE ONCE IV 06/20/25 16:30 06/20/25 16:59 DC 06/20/25 18:01 100 MLS/HR Meropenem 50 ml @ 17 mls/hr Q8HR IV 06/20/25 22:00 06/20/25 23:08 17 MLS/HR Sodium Chloride 1,000 ml @ 125 mls/hr Q8H IV 06/20/25 21:45 06/20/25 23:36 125 MLS/HR Assessment/Plan Assessment/Plan Complicated UTI Hx of recurrent UTI; ESBL positive UTI in 2019 UA positive for UTI Urine culture, blood culture ordered Meropenem 1 g IV q.8 IV maintenance fluid with normal saline Monitor BMP Presyncope, rule out cardiogenic cause Likely due to polypharmacy EKG shows sinus bradycardia with incomplete right bundle-branch block Orthostatic vitals Echocardiogram ordered Carotid Doppler showed no hemodynamically significant stenosis of carotid arteries Monitor on telemetry for life-threatening arrhythmias Essential hypertension Continue hydrochlorothiazide 12.5 mg daily Holding of metoprolol due to bradycardia OA Mixed hyperlipidemia Continue atorvastatin Superficial laceration injury to scalp after fall Pain management with Galvin as needed CT cervical spine shows mild spondylosis, cervical lordosis; no evidence of acute fracture CT head show no acute intracranial abnormality. Recommend physical therapy evaluation Gastritis with gastric ulcer Continue Protonix 40 mg daily Discussed trial of smaller, more frequent meals. Avoid foods Triggers like spicy, acidic, fried, and fatty foods. Limit Caffeine, highly processed foods and sugars. Discussed incorporating High-Fiber diet and staying hydrated. Obesity class 2 with BMI 38 LISA on CPAP Transaminitis Labs show mildly elevated ALT Counseled on lifestyle and diet Monitor for LISA complication, consider CPAP if needed DIET: Cardiac DVT PROPHYLAXIS: Lovenox GI PROPHYLAXIS: Protonix CODE STATUS: Goals of care discussed with patient, nurses at bedside for more than 36 minutes. Full code DISPOSITION: Med/surge Patient's status and plan discussed with the patient. Case discussed with Dr. Garcia. Plan discussed with: Patient, Other (Nurses) My Orders Orders - KALPESH WOLFF RESIDENT Procedure Category Date Status Time Complete Blood Count LAB 06/21/25 Logged 04:00 Basic Metabolic Panel LAB 06/21/25 Logged 04:00 Meropenem 1gm Ivpb PHA 06/20/25 In Process (Merrem 1gm/50ml) 22:00 Hydrocodone-Acet PHA 06/20/25 In Process 5/325mg Tab (Galvin 21:45 Urine Bacterial [facility] 06/20/25 In Process Culture 21:43 Blood Culture [facility] 06/20/25 In Process 21:43 Orthostatic Vital ED NURSING 06/20/25 Transmitted Signs Echo 2d Mode Cardiac US 06/20/25 Logged DOP 21:43 Carotid Duplx W Color US 06/20/25 Resulted DOP 21:43 Sodium Chloride 0.9% PHA 06/20/25 In Process 21:45 Hydrochlorothiazide PHA 06/21/25 In Process Tablet (Hydrochlorot 10:00 Atorvastatin (Lipitor) PHA 06/21/25 In Process 22:00 Pantoprazole Tablet PHA 06/22/25 In Process (Protonix Tablet) 06:00 Admit ADMIT 06/21/25 Transmitted 00:06 Allergies [facility] 06/21/25 Transmitted 00:06 Code Status CODE 06/21/25 Transmitted 00:06 Ondansetron Hcl PHA 06/21/25 Transmitted (Zofran) 00:15 Fall Risk Precautions [facility] 06/21/[address] 00:06 Cardiac DIET 06/21/25 Transmitted Diet-2gna,Lofat,Lochol Breakfast Condition: Serious [facility] 06/21/25 Transmitted 00:06 Lovenox 40mg PHA 06/21/25 Transmitted 00:15 Oxygen By Nasal RT 06/21/25 Transmitted Cannula 00:06 Stat Ekg For Chest [facility] 06/21/25 Transmitted Pain 00:06 Notify Of Changes [facility] 06/21/25 Transmitted From Base 00:06 Manager Wastewater For [facility] 06/21/25 Transmitted 24 Hours 00:06 Emergency Dysrhythmia [facility] 06/21/25 Transmitted Protocol 00:06 Rhythm Strips Once [facility] 06/21/25 Transmitted Every Shift 00:06 Date of Service: Jun 21, 2025 Billing Provider: NAVJOT GARCIA MD Common Visit Codes: [id number] INP/OBS CARE (HIGH) Secondary Visit Codes: [id number] CARE PLAN 30 MINUTES KALPESH WOLFF RESIDENT Jun 21, 2025 00:38 JESSICA PEREZ RESIDENT Jun 21, 2025 00:54
[2025-06-21 05:08] LABS: Hematocrit 40.7 % (36.0-46.0); Hemoglobin 13.9 g/dL (12.2-16.2); Mean Corpuscular Hemoglobin 29.3 pg (28.0-32.0); Mean Corpuscular Volume 85.5 fL (80.0-100.0); Nucleated Red Blood Cells % 0.2 %
[2025-06-21 05:18] LABS: Chloride 101 mmol/L (98-107); Potassium 3.9 mmol/L (3.5-5.1); Sodium 140 mmol/L (136-145)
[2025-06-21 05:19] LABS: Anion Gap 8 (5-15); Calcium 9.6 mg/dL (8.7-10.4); Carbon Dioxide 31 mmol/L (20-31)
[2025-06-21] MEDS: ENOXAPARIN SOD 40 MG/0.4 ML SYRINGE SC SCH (05:22)
[2025-06-21] MEDS: hydroCHLOROthiazide 25 MG TAB PO ONE ×2 (05:22→10:51)
[2025-06-21] MEDS: ATORVASTATIN 20 MG TAB PO ONE (05:22)
[2025-06-21 05:24] LABS: BUN/Creatinine Ratio 13.9 (10.0-20.0); Blood Urea Nitrogen 10 mg/dL (9-23); Glucose 96 mg/dL (74-106)
[2025-06-21] MEDS: PANTOPRAZOLE 40 MG TAB PO ONE (05:34)
[2025-06-21] MEDS ORDERED: hydroCHLOROthiazide 25 MG TAB PO SCH (10:00)
[2025-06-21] MEDS ORDERED: hydrALAZINE HCL 20 MG/ML VL IV PRN (11:30)
--- NOTE | 2025-06-21 13:06 | DVHPNRES ---
Progress Note Date Seen: Jun 21, 2025 Resident Creating Document: ANTWAN GRIMALDO RESIDENT Medical Necessity Reason Pt with a Central, PICC or Fol: No Subjective Review of Systems Radha Evangelista is a 65-year-old female with past medical history of hyperlipidemia, hypertension, gastritis, LISA, who presented to the ER after sustaining a fall due to lightheadedness. She complained of intermittent lightheadedness starting 6 weeks ago, described 'everything around her moving in circles', without any aggravating or relieving factors. She had braced multiple falls in past. Yesterday, she was unable to brace her fall and hit her head on the floor, causing a laceration injury on the back of her head. She also complains of burning micturition and reports intermittent history of dysuria for several years, relieved with antibiotic therapy. Her most recent UTI was treated with Nitrofurantoin for 7 days with PCP. She also reports of episodic headaches that started after a fall injury in March 2022. Headaches are described as constant, pounding headache in frontal or temporal region of head, associated with occasional mild photophobia and tearing from her both eyes. She denies fever, chills, nausea, vomiting, neck rigidity, sick contact, chest pain or palpitations. Denies history of migraine. On evaluation today, patient mentions she has mild headache, but is doing well otherwise. The head CT, cervical spine CT and carotid Doppler were unremarkable and showed no acute changes. Orthostatic vitals were done for the patient and she was found to have orthostatic hypotension. Her hydrochlorothiazide dose was resumed today, and hydralazine 10 mg p.r.n. was added for elevated blood pressure. Telemetry was reviewed and patient was found to have episodes of extreme bradycardia on . Cardiology consult was placed for the same reason. 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 Denies alcohol or recreational drug use. Not currently sexually active. Full code. Next of kin: sister Hermila Home medication: Baclofen, hydrochlorothiazide 12.5, pantoprazole, simvastatin, metoprolol succinate (started 2 months ago) Coded Allergies: Aspirin (Verified Allergy, Severe, 11/20/19) Codeine (Verified Allergy, Severe, 11/20/19) Penicillins (Verified Allergy, Severe, 11/20/19) Patient seen and examined at bedside. Patient is alert and oriented to time, place person and responding to all questions. Eyes: No Pain, No Vision change, No Conjunctivae inflammation, No Eyelid inflammation, No Redness ENT: No Ear pain, No Ear discharge, No Nose pain, No Nose discharge, No Nose congestion, No Mouth pain, No Mouth swelling, No Throat pain, No Throat swelling Cardiovascular: No Chest Pain, No Palpitations, No Orthopnea, No Paroxysmal No Dyspnea, No Edema, No Lt Headedness Respiratory: No Cough, No Dry, No Shortness of breath, No SOB with exertion, No Wheezing, No Hemoptysis, No Pleuritic Pain, No Sputum Gastrointestinal: No Nausea, No Vomiting, No Abdominal Pain, No Diarrhea, No Constipation, No Melena, No Hematochezia Genitourinary: mild Dysuria, No Frequency, No Incontinence, No Hematuria, No Retention Patient reports: Feels better Objective vital signs Vital Sign Date Time Temp Pulse Resp B/P (MAP) Pulse Ox O2 Delivery O2 Flow Rate FiO2 06/21/25 10:58 56 112/70 (84) 94 06/21/25 09:00 97.8 18 97.8 06/21/25 03:06 Room Air* 0 21 Total Intake and Output 06/20/25 06/20/25 06/21/25 15:00 23:00 07:00 Intake Total 0 ml Balance 0 ml medications Current Medications Medications Dose Ordered Sig/Candy Route Start Time Stop Time Status Last Admin Dose Admin Meropenem 50 ml @ 17 mls/hr Q8HR IV 06/20/25 22:00 06/21/25 05:23 17 MLS/HR Acetaminophen/ Hydrocodone Bitart 1 tab Q4HPRN PRN PO 06/20/25 21:45 Sodium Chloride 1,000 ml @ 125 mls/hr Q8H IV 06/20/25 21:45 06/20/25 23:36 125 MLS/HR Pantoprazole Sodium 40 mg DAILY@0600 PO 06/22/25 06:00 Atorvastatin Calcium 40 mg HS PO 06/21/25 22:00 Ondansetron HCl 4 mg Q4HP PRN IV 06/21/25 00:15 Enoxaparin Sodium 40 mg DAILY SC 06/21/25 00:15 06/21/25 05:22 40 MG Hydrochlorothiazide 12.5 mg DAILY PO 06/22/25 10:00 Hydralazine HCl 10 mg Q6HP PRN IV 06/21/25 11:30 Examination General Appearance: Cooperative. Well developed. Well nourished. NAD. The patient has a curvilinear, healed and nondraining scar approximately 7 cm long along the anterior aspect of right shoulder Head Exam: Patient has alicia placed on the back of her head, small laceration injury approximately 1.5 cm Neck Exam: Normal inspection. Non-tender. Normal alignment Pulmonary/Respiratory: Chest non-tender. Clear bilateral breath sounds, no crackles, no wheezing. Cardiovascular/Chest: Regular rate and rhythm. No murmurs. No JVD. Peripheral Pulses: 2+ Radial (R). 2+ Radial (L). 2+ Pedal (R). 2+ Pedal (L) Abdominal Exam: Normal bowel sounds. Soft. normal abdomen, no visible veins, Nontender. No hepatospenomegaly. No masses Ankle Exam: Negative ankle edema Lower extremities: Negative lower extremity edema, patient has a vertical, healed and non draining scar approximately 10 cm long on the anterior knee Neuro/Mental Status: A&O x4. Coherent. Thoughts/Psych: Normal thought pattern. Appropriate mood and affect. Good judgement and insight Skin Exam: Normal inspection. Normal color. Warm. Dry Nurse was present as vest tailor during the examination. laboratory and microbiology Laboratory Tests 06/21/25 05:00 Test 06/21/25 05:00 Range/Units Serum Glucose 96 74-106 mg/dL Microbiology Date/Time Source Procedure Growth Status 06/20/25 14:58 Voided Urine Urine Culture - Preliminary Resulted Labs and/or images reviewed: Labs reviewed by me, Image(s) reviewed by me Problem List/Assessment/Plan Problem List/Assessment/Plan Complicated UTI Hx of recurrent UTI; ESBL positive UTI in 2019 UA positive for UTI Suspected sepsis -Urine culture, blood culture pending -Meropenem 1 g IV q.8 -IV maintenance fluid with normal saline -Monitor BMP Suspected CALEB -continue IV fluids -avoid nephrotoxic agents Syncope and collapse in the setting of sinus bradycardia, rule out cardiogenic cause Likely due to polypharmacy EKG shows sinus bradycardia with incomplete right bundle-branch block -Orthostatic vitals showed orthostatic hypotension -Echocardiogram ordered -Carotid Doppler showed no hemodynamically significant stenosis of carotid arteries -Monitor on telemetry for life-threatening arrhythmias Essential hypertension,controlled bradycardia -Continue home dose hydrochlorothiazide 12.5 mg daily -Holding of metoprolol due to bradycardia -telemetry showed extreme bradycardia of 31 -cardiology consult placed Mixed hyperlipidemia -Continue atorvastatin Superficial laceration injury to scalp after fall -Pain management with [place] as needed -CT cervical spine shows mild spondylosis, cervical lordosis; no evidence of acute fracture -CT head show no acute intracranial abnormality. -Recommend physical therapy evaluation Gastritis with gastric ulcer Continue Protonix 40 mg daily Discussed trial of smaller, more frequent meals. Avoid foods Triggers like spicy, acidic, fried, and fatty foods. Limit Caffeine, highly processed foods and sugars. Discussed incorporating High-Fiber diet and staying hydrated. Obesity class 2 with BMI 38 LISA on CPAP -Counseled on lifestyle and diet -Monitor for LISA complication, consider CPAP if needed DIET: Cardiac DVT PROPHYLAXIS: Lovenox GI PROPHYLAXIS: Protonix CODE STATUS: Goals of care discussed with patient at bedside for 20 minutes. Full code Patient's status and plan discussed with the patient. Case discussed with Plan discussed with: Patient, Other My Orders My Orders Orders - ANTWAN GRIMALDO RESIDENT Procedure Category Date Status Time Hydrochlorothiazide PHA 06/22/25 In Process Tablet (Hydrochlorot 10:00 Hydralazine Injection PHA 06/21/25 In Process (Apresoline Inject 11:30 Lactic Acid W/ Reflex LAB 06/21/25 In Process Order 11:21 ADDENDUM ADDENDUM ADDENDUM I was physically present for the ellison portions of the service provided to patient by THE RESIDENT. I have reviewed the documentation, discussed the case with resident and agree with the resident's documentation except as noted. Also the patient's clinical case was discussed with the patient's nurse. This medical document was created using an electronic medical record system with computerized dictation system. Although this document has been carefully reviewed, there might still be some phonetic and typographical errors. These areas are purely typographical due to imperfections of the software programs, and do not reflect any compromise in the patient's medical care. Late signature. Date of Service: Jun 21, 2025 Billing Provider: NESTOR CHAVIRA MD Common Visit Codes: [id number] INP/OBS CARE(HIGH) Secondary Visit Codes: [id number] CARE PLAN 30 MINUTES (20 minutes) ANTWAN GRIMALDO RESIDENT Jun 21, 2025 13:06 NESTOR CHAVIRA MD Jun 22, 2025 06:38
[2025-06-21] MEDS: GLUCAGON EMERG KIT 1mg/1ml IV ONE (14:00)
--- NOTE | 2025-06-21 15:39 | DVHINCON2 ---
Date Seen: Jun 21, 2025 Referring Physician MD Brian Reason for Consultation Extreme bradycardia History of Present Illness This is a pleasant 65-year-old female who presented to the emergency room with a chief complaint of syncopal event yesterday morning. The patient reports she developed a sudden onset of dizziness and lightheadedness with a subsequent syncopal event associated with a posterior head laceration. Per patient she started developing increased lethargy, dizzy spells, lightheadedness, and visual disturbances approximately two months ago after she was prescribed metoprolol XL 50 mg by PCP on 04/17/2025. States she was prescribed this medication for blood pressure control. She underwent a 12 lead electrocardiogram revealing a sinus bradycardia rhythm without evidence of atrioventricular blocks or sinus pauses. finisher denture reviewed revealing a sinus bradycardia rhythm with a heart rate as low as 39 bpm. Significant medical history includes hypertension, dyslipidemia, obstructive sleep apnea, gastritis, and obesity. Past Medical History Past medical history reviewed. No other significant than mentioned above. Past Surgical History Right shoulder Bilateral ankle Family History: Diabetes mellitus G8 MOTHER FH: breast cancer G8 MOTHER FH: heart disease G8 MOTHER G8 FATHER Family History Family history reviewed. Social History Denies the use of illicit drugs, alcohol, or tobacco use. Allergies: Coded Allergies: Aspirin (Verified Allergy, Severe, 11/20/19) Codeine (Verified Allergy, Severe, 11/20/19) Penicillins (Verified Allergy, Severe, 11/20/19) Home Meds Active Scripts Nitrofurantoin Monohyd Macro (Nitrofurantoin Monohydrat) 100 Mg Cap, 1 CAP PO BID, #14 CAP Prov:GEOVANNI ALONZO MD 11/23/19 Sucralfate (CARAFATE) 1 Gm Tab, 1 GM OR QIDACHS for 30 Days, #120 TAB Prov:GEOVANNI ALONZO MD 11/22/19 Pantoprazole Sodium Sesquihydr (Pantoprazole Sodium) 40 Mg Tab, 40 MG PO BID for 60 Days, #120 TAB Prov:GEOVANNI ALONZO MD 11/22/19 Reported Medications Simvastatin (Simvastatin) 40 Mg Tab, 40 MG PO DAILY for 30 Days 11/20/19 Hydrochlorothiazide (Hydrochlorothiazide) 12.5 Mg Cap, 12.5 MG PO DAILY for 30 Days, MG 11/20/19 Baclofen (Baclofen) 10 Mg Tab, 10 MG PO BID for 30 Days, MG 11/20/19 Home Meds Home medications reviewed. Current Medications Current Medications Medications (Trade) Dose Ordered Sig/Candy Route PRN Reason Start Time Stop Time Status Last Admin Meropenem 50 ml @ 17 mls/hr Q8HR IV 06/20/25 22:00 06/21/25 13:58 Acetaminophen/ Hydrocodone Bitart ([place] 5/325MG Tab) 1 tab Q4HPRN PRN PO MODERATE PAIN (4-6 PAIN SCALE) 06/20/25 21:45 Sodium Chloride 1,000 ml @ 125 mls/hr Q8H IV 06/20/25 21:45 06/21/25 13:58 Hydrochlorothiazide (hydroCHLOROthiazide TABLET) 12.5 mg DAILY PO 06/21/25 10:00 06/21/25 03:43 DC Pantoprazole Sodium (Protonix Tablet) 40 mg DAILY@0600 PO 06/22/25 06:00 Atorvastatin Calcium (Lipitor) 40 mg HS PO 06/21/25 22:00 Ondansetron HCl (Zofran) 4 mg Q4HP PRN IV NAUSEA / VOMITING 06/21/25 00:15 Enoxaparin Sodium (Lovenox) 40 mg DAILY SC 06/21/25 00:15 06/21/25 05:22 Hydrochlorothiazide (hydroCHLOROthiazide TABLET) 12.5 mg DAILY PO 06/22/25 10:00 Hydralazine HCl (Apresoline Injection) 10 mg Q6HP PRN IV SBP>150 06/21/25 11:30 Review of Systems Constitutional: No symptom reported Ears, Nose, & Throat: No symptom reported Eyes: No symptom reported Neurological: Dizziness, syncope Pulmonary/Respiratory: No symptom reported Cardiovascular: No symptom reported Gastrointestinal: No symptom reported Genitourinary: No symptom reported Musculoskeletal: No symptom reported Skin: No symptom reported Psychiatric: No symptom reported Endocrine: No symptom reported Hemotologic/Lymphatic: No symptom reported Vital Signs Vital Signs Date Time Temp Pulse Resp B/P (MAP) Pulse Ox O2 Delivery O2 Flow Rate FiO2 06/21/25 10:58 56 112/70 (84) 94 06/21/25 09:00 97.8 18 97.8 06/21/25 03:06 Room Air* 0 21 Physical Exam General Appearance: Cooperative. Well developed. Obese. In no acute distress Head Exam: Normal inspection Neck Exam: Normal inspection. Non-tender. Normal alignment Pulmonary/Respiratory: Chest non-tender. Clear bilateral breath sounds Cardiovascular/Chest: Regular rate and rhythm. S1, S2. NSR. No murmurs. No JVD. Peripheral Pulses: 2+ Radial (R). 2+ Radial (L). 2+ Pedal (R). 2+ Pedal (L) Abdominal Exam: Normal bowel sounds. Soft. Ankle Exam: Negative ankle edema Lower extremities: Negative lower extremity edema Neuro/Mental Status: A&O x4. Coherent Thoughts/Psych: Normal thought pattern. Appropriate mood and affect. Good judgement and insight Appearance: In no acute distress Skin Exam: Normal inspection. Normal color. Warm. Dry Labs/Diagnostic Data Labs Test 06/21/25 12:02 06/21/25 05:00 06/20/25 20:55 06/20/25 17:23 Range/Units Lactic Acid Level 0.9 0.4-2.0 mmol/L White Blood Count 7.3 4.4-10.8 10^3/uL Red Blood Count 4.76 4.0-5.20 10^6/uL Hemoglobin 13.9 12.2-16.2 g/dL Hematocrit 40.7 36.0-46.0 % Mean Corpuscular Volume 85.5 80.0-100.0 fL Mean Corpuscular Hemoglobin 29.3 28.0-32.0 pg Mean Corpuscular Hemoglobin Concent 34.3 32.0-36.0 g/dL Red Cell Distribution Width 14.5 H 11.8-14.3 % Platelet Count 194 140-450 10^3/uL Mean Platelet Volume 8.2 6.9-10.8 fL Neutrophils (%) (Auto) 56.7 37.0-80.0 % Lymphocytes (%) (Auto) 27.3 10.0-50.0 % Monocytes (%) (Auto) 12.2 H 0.0-12.0 % Eosinophils (%) (Auto) 3.4 0.0-7.0 % Basophils (%) (Auto) 0.4 0.0-2.0 % Neutrophils # (Auto) 4.1 1.6-8.6 10 ^3/uL Lymphocytes # (Auto) 2.0 0.4-5.4 10 ^3/uL Monocytes # (Auto) 0.9 0-1.3 10 ^3/uL Eosinophils # (Auto) 0.2 0-0.8 10 ^3/uL Basophils # (Auto) 0 0-0.2 10 ^3/uL Nucleated Red Blood Cells 0.2 % Sodium Level 140 136-145 mmol/L Potassium Level 3.9 3.5-5.1 mmol/L Chloride Level 101 98-107 mmol/L Carbon Dioxide Level 31 20-31 mmol/L Anion Gap 8 5-15 Blood Urea Nitrogen 10 9-23 mg/dL Creatinine 0.72 0.550-1.02 mg/dL Glomerular Filtration Rate Calc 93 >90 mL/min BUN/Creatinine Ratio 13.9 10.0-20.0 Serum Glucose 96 74-106 mg/dL Calcium Level 9.6 8.7-10.4 mg/dL Prothrombin Time 10.3 9.3-11.8 sec Prothrombin Time INR 0.97 0.9-1.15 Activated Partial Thromboplast Time 23.0 L 24.5-34.5 SEC Hemoglobin A1c 5.5 <5.7 % A1C Phosphorus Level 3.4 2.4-5.1 mg/dL Magnesium Level 2.1 1.6-2.6 mg/dL Troponin I High Sensitivity 5 </=34 ng/L C-Reactive Protein High Sensitivity 0.31 <1.0 mg/dL Triglycerides Level 69 < 150 mg/dL Cholesterol Level 202 H < 200 mg/dL LDL Cholesterol 115 H < 100 mg/dL HDL Cholesterol 80 H 40-59 mg/dL Lipase 32 12-53 U/L Vitamin B12 Level 469 211-911 pg/mL Vitamin D 25-Hydroxy 51.8 30.0-100 ng/mL Thyroid Stimulating Hormone (TSH) 1.64 0.55-4.78 uIU/mL Test 06/20/25 15:55 06/20/25 15:03 06/20/25 14:58 Range/Units Total Bilirubin 0.5 0.2-1.0 mg/dL Aspartate Amino Transferase (AST) 37 13-40 U/L Alanine Aminotransferase (ALT) 41 H 7-40 U/L Alkaline Phosphatase 71 46-116 U/L Total Protein 7.3 5.7-8.2 g/dL Albumin 4.5 3.2-4.8 g/dL POC Glucose 103 70-106 mg/dl Urine Color Yellow Yellow Urine Clarity Turbid H Clear Urine pH 6.0 5.0-9.0 Urine Specific [place] 1.029 1.001-1.035 Urine Protein 1+ H Negative Urine Ketones Negative Negative Urine Blood Negative Negative /uL Urine Nitrite Negative Negative Urine Bilirubin Negative Negative Urine Urobilinogen Normal Negative mg/dL Urine Leukocyte Esterase 3+ Negative /uL Urine RBC 15 0 - 4 /hpf Urine Microscopic WBC 45 H 0-5 /HPF Urine Squamous Epithelial Cells Few <5 /hpf Urine Bacteria None seen None Seen /hpf Urine Hyaline Casts Few 0 - 2 /lpf Urine Mucus Few None Seen Urine Glucose Normal Normal mg/dL Urine Opiates Screen Neg NEGATIVE Urine Fentanyl Screen Neg NEGATIVE Urine Barbiturates Screen Neg NEGATIVE Urine Phencyclidine Screen Neg NEGATIVE Urine Amphetamines Screen Neg NEGATIVE Urine Benzodiazepines Screen Neg NEGATIVE Urine Cocaine Screen Neg NEGATIVE Urine Cannabinoids Screen Neg NEGATIVE Microbiology Date/Time Source Procedure Growth Status 06/20/25 14:58 Voided Urine Urine Culture - Preliminary Resulted Assessment Syncope and collapse Beta-william induced sinus bradycardia Rule out structural heart disease Hypertension Dyslipidemia Obesity Plan/Recommendation (Dr. Saleh) We will continue further cardiac evaluation with a transthoracic echocardiogram to rule out structural heart disease. Recommendations are to avoid AV tristian blocking agents including home metoprolol. Medicated with glucagon IV x1. Monitor ECG changes closely and notify of a high rate <30 bpm, sinus pauses >3 sec, or high-degree atrioventricular blocks. Consider an outpatient event monitor if deemed necessary. In the setting of an unremarkable echocardiogram, there is no further cardiac workup indicated at this time. Thank you for allowing us to participate in this patient's care. Please call if you have any questions or concerns. This medical document was created using an electronic medical record system with voice recognition software and computerized dictation system. Although this document has been carefully reviewed, there might still be some phonetic and typographical errors. Occasional wrong-word or ``sound-alike substitutions may have occurred due to the inherent limitations of voice recognition software. These areas are purely typographical due to imperfections of the software programs and do not reflect any compromise in the patient's medical care. Please read the chart carefully and recognize, using context, where these substitutions have occurred. Plan discussed with: Patient, Other NYHA Physical activity limitations: NA Date of Service: Jun 21, 2025 Billing Provider: LEX MUNOZ Cardiology Common Codes: [id number] INP/OBS CARE (High) LEX MUNOZ Jun 21, 2025 15:39
--- NOTE | 2025-06-21 19:13 | DVHSR ---
APPROVED REPORT EXAM: Two-dimensional and M-mode echocardiogram with Doppler and color Doppler. Blood Pressure: 179/98 mmHg INDICATION Pesyncope RISK FACTORS Height: 67, Weight: 244 DIMENSIONS LVDd5.3 (3.8-5.7cm)LA (2D)4.5 (1.9-4.0cm)Aortic Root3.7 (2.0-3.7cm) LVDs3.6 (2.5-4.0cm)LA (MM) (1.9-4.0cm)Aortic Cusp Exc2.0 (1.5-2.0cm) EF (%) 58.0 (55-70%)Rt. Atrium (1.9-4.0cm)Asc. Aorta cm IVSd1.1 (0.7-1.1cm)RV (D) (1.8-2.4cm) PWd1.4 (0.7-1.1cm) Mitral Valve MitralMitral Stenosis E wave0.59m/sMV Mean GR.mmHg A wave0.89m/sMV Peak GR.95mmHg E/A ratio0.72D MVAcm2 DECEL [id number] 1/2 [id number] IVRTmsDop MVA1.42cm2 Aortic Valve Aortic ValveAortic Stenosis V11.09m/[place] Mean GR.5mmHg V21.48m/[place] Peak GR.9mmHg LVOT Diameter2.0 (1.8-2.4cm)Doppler AVA2.31cm2 Pulmonic Valve V20.99m/s Conclusion MILD LVH AND MILD LV DIASTOLIC DYSFUNCTION LV EF IS 65% NORMAL VALVES NO EFFUSION
[2025-06-21] MEDS: ATORVASTATIN 20 MG TAB PO SCH (21:13)
[2025-06-22] VITALS (9 sets, daily range): BP systolic 121–149; BP diastolic 65–80; PULSE 50–68; RESP 18; TEMP 97.6–98.1; O2SAT 94–98
[2025-06-22] MEDS: PANTOPRAZOLE 40 MG TAB PO SCH (04:46)
--- NOTE | 2025-06-22 06:39 | DVHPN2 ---
Subjective Did not share any complaints Reviewed: Care Plan, H&P, Labs, Medications, Previous Orders, Radiology, Other (Consultation) Changes from previous H/P or p: Changes Objective Vitals Vital Signs Date Time Temp Pulse Resp B/P (MAP) Pulse Ox O2 Delivery O2 Flow Rate FiO2 06/22/25 05:00 97.7 52 18 149/80 (103) 94 97.7 06/21/25 20:00 Room Air* 0 N/A Nasal Cannula* Intake/Output Intake and Output 06/22/25 07:00 Intake Total 1425 ml Output Total 5 ml Balance 1420 ml Intake Oral 1325 ml IV Total 100 ml Output Urine Total 5 ml # Voids 3 General Appearance: Alert, Oriented X3, Cooperative, No acute distress HEENT: Other (Healing laceration of the scalp with no signs of bleeding/infection) Lungs: Clear to auscultation, Normal air movement Cardiovascular: Regular rate, Normal S1, Normal S2, No murmurs Abdomen: Normal bowel sounds, Soft, No tenderness Extremities: No edema Neuro: Normal speech, Cranial nerves 3-12 NL Psych/Mental Status: Mental status NL, Mood NL Medications Current Medications Medications Dose Ordered Sig/Candy Route Start Time Stop Time Status Last Admin Dose Admin Meropenem 50 ml @ 17 mls/hr Q8HR IV 06/20/25 22:00 06/22/25 04:46 17 MLS/HR Acetaminophen/ Hydrocodone Bitart 1 tab Q4HPRN PRN PO 06/20/25 21:45 Sodium Chloride 1,000 ml @ 125 mls/hr Q8H IV 06/20/25 21:45 06/22/25 04:46 125 MLS/HR Pantoprazole Sodium 40 mg DAILY@0600 PO 06/22/25 06:00 06/22/25 04:46 40 MG Atorvastatin Calcium 40 mg HS PO 06/21/25 22:00 06/21/25 21:13 40 MG Ondansetron HCl 4 mg Q4HP PRN IV 06/21/25 00:15 Enoxaparin Sodium 40 mg DAILY SC 06/21/25 00:15 06/21/25 05:22 40 MG Hydrochlorothiazide 12.5 mg DAILY PO 06/22/25 10:00 Hydralazine HCl 10 mg Q6HP PRN IV 06/21/25 11:30 Laboratory Results Laboratory Tests 06/21/25 05:00 Urinalysis Test 06/20/25 14:58 Urine Color Yellow (Yellow) Urine Clarity Turbid (Clear) H Urine pH 6.0 (5.0-9.0) Urine Specific [place] 1.029 (1.001-1.035) Urine Protein 1+ (Negative) H Urine Ketones Negative (Negative) Urine Blood Negative /uL (Negative) Urine Nitrite Negative (Negative) Urine Bilirubin Negative (Negative) Urine Urobilinogen Normal mg/dL (Negative) Urine Leukocyte Esterase 3+ /uL (Negative) Urine RBC 15 /hpf (0 - 4) Urine Microscopic WBC 45 /HPF (0-5) H Urine Squamous Epithelial Cells Few /hpf (<5) Urine Bacteria None seen /hpf (None Seen) Urine Hyaline Casts Few /lpf (0 - 2) Urine Mucus Few (None Seen) Urine Glucose Normal mg/dL (Normal) Microbiology Microbiology Date/Time Source Procedure Growth Status 06/20/25 22:07 Blood Blood Culture - Preliminary NO GROWTH AFTER 24 HOURS OF INCUBATION. Resulted 06/20/25 14:58 Voided Urine Urine Culture - Preliminary Resulted Labs and/or images reviewed: Labs reviewed by me, Image(s) reviewed by me Assessment/Plan Assessment/Plan Covering: Syncope and collapse due to beta-william induced sinus bradycardia; resulting in fall with injury Fall resulting in superficial laceration of the scalp Superficial laceration of the scalp; healing Beta-william induced sinus bradycardia Hypertensive heart disease with chronic diastolic heart failure; not in exacerbation Complicated UTI in the setting of history of ESBL E coli complicated UTI Suspected sepsis due to complicated UTI Suspected CALEB in the setting of suspected sepsis; most likely vasomotor nephropathy Gastritis with history of gastric ulcer Obstructive sleep apnea on CPAP Mixed dyslipidemia Morbid obesity Pending urine cultures Continue IV antibiotics; IV meropenem due to history of ESBL E coli Reviewed echocardiogram; results as below Was on IV fluids Avoid nephrotoxic agents Telemetry Fall precautions Continue antihypertensive medications and adjust according to blood pressure monitoring Reviewed available lab work and imaging studies including carotid duplex ultrasound Counseled the patient importance of adopting healthy lifestyle with diet and exercise in order to lose weight Continue home statin Continue home pantoprazole Physical therapy on board Cardiology evaluated the patient: To avoid/stop any AV node blocking agents On DVT prophylax Continue monitoring Echocardiogram results,: MILD LVH AND MILD LV DIASTOLIC DYSFUNCTION LV EF IS 65% NORMAL VALVES NO EFFUSION To be discharged when final urine culture results are available Late Entry. This medical document was created using an electronic medical record system with computerized dictation system. Although this document has been carefully reviewed, there might still be some phonetic and typographical errors. These areas are purely typographical due to imperfections of the software programs, and do not reflect any compromise in the patient's medical care. Plan discussed with: Patient, Other (Nurse) Date of Service: Jun 22, 2025 Billing Provider: NESTOR CHAVIRA MD Common Visit Codes: [id number] INP/OBS CARE(HIGH) NESTOR CHAVIRA MD Jun 22, 2025 06:39
[2025-06-22 08:05] LABS: Anion Gap 8 (5-15); Carbon Dioxide 30 mmol/L (20-31); Chloride 101 mmol/L (98-107); Potassium 4.4 mmol/L (3.5-5.1); Sodium 139 mmol/L (136-145)
[2025-06-22 08:07] LABS: Calcium 9.6 mg/dL (8.7-10.4)
[2025-06-22 08:11] LABS: BUN/Creatinine Ratio 18.1 (10.0-20.0); Blood Urea Nitrogen 13 mg/dL (9-23); Glucose 89 mg/dL (74-106)
[2025-06-22] MEDS: hydroCHLOROthiazide 25 MG TAB PO SCH (09:41)
[2025-06-22] MEDS: POLYETHYLENE GLYCOL 17 GM PWDR PO PRN (10:24)
[2025-06-22 11:03] LABS: Hematocrit 40.3 % (36.0-46.0); Hemoglobin 13.7 g/dL (12.2-16.2); Mean Corpuscular Hemoglobin 29.3 pg (28.0-32.0); Mean Corpuscular Volume 86.2 fL (80.0-100.0); Nucleated Red Blood Cells % 0.1 %
[2025-06-23] VITALS (9 sets, daily range): BP systolic 99–133; BP diastolic 47–76; PULSE 48–58; RESP 16–18; TEMP 97.7–98.1; O2SAT 94–100
[2025-06-23 05:48] LABS: Chloride 102 mmol/L (98-107); Potassium 4.2 mmol/L (3.5-5.1); Sodium 139 mmol/L (136-145)
[2025-06-23 05:49] LABS: Anion Gap 7 (5-15); Carbon Dioxide 30 mmol/L (20-31)
[2025-06-23 05:50] LABS: Calcium 9.6 mg/dL (8.7-10.4)
[2025-06-23 05:55] LABS: BUN/Creatinine Ratio 19.2 (10.0-20.0); Blood Urea Nitrogen 14 mg/dL (9-23); Glucose 102 mg/dL (74-106)
--- NOTE | 2025-06-23 08:19 | DVHPN2 ---
Subjective Did not share any complaints Reviewed: Care Plan, H&P, Labs, Medications, Previous Orders, Radiology, Other (Consultation) Changes from previous H/P or p: No Changes Objective Vitals Vital Signs Date Time Temp Pulse Resp B/P (MAP) Pulse Ox O2 Delivery O2 Flow Rate FiO2 06/23/25 05:00 97.7 55 17 99/57 (71) 100 97.7 06/23/25 04:02 Facial BiPAP Mask 30 06/22/25 20:00 0 Intake/Output Intake and Output 06/23/25 07:00 Intake Total 1525 ml Balance 1525 ml Intake Oral 1425 ml IV Total 100 ml # Voids 5 # Bowel Movements 1 General Appearance: Alert, Oriented X3, Cooperative, No acute distress HEENT: Other (Healing laceration of the scalp with no signs of bleeding/infection) Lungs: Clear to auscultation, Normal air movement Cardiovascular: Regular rate, Normal S1, Normal S2, No murmurs Abdomen: Normal bowel sounds, Soft, No tenderness Extremities: No edema Neuro: Normal speech, Cranial nerves 3-12 NL Psych/Mental Status: Mental status NL, Mood NL Medications Current Medications Medications Dose Ordered Sig/Candy Route Start Time Stop Time Status Last Admin Dose Admin Meropenem 50 ml @ 17 mls/hr Q8HR IV 06/20/25 22:00 06/22/25 22:40 17 MLS/HR Acetaminophen/ Hydrocodone Bitart 1 tab Q4HPRN PRN PO 06/20/25 21:45 Pantoprazole Sodium 40 mg DAILY@0600 PO 06/22/25 06:00 06/23/25 06:18 40 MG Atorvastatin Calcium 40 mg HS PO 06/21/25 22:00 06/22/25 22:13 40 MG Ondansetron HCl 4 mg Q4HP PRN IV 06/21/25 00:15 Enoxaparin Sodium 40 mg DAILY SC 06/21/25 00:15 06/22/25 09:41 40 MG Hydrochlorothiazide 12.5 mg DAILY PO 06/22/25 10:00 06/22/25 09:41 12.5 MG Hydralazine HCl 10 mg Q6HP PRN IV 06/21/25 11:30 Polyethylene Glycol 17 gm DAILYPRN PRN PO 06/22/25 09:45 06/22/25 10:24 17 GM Laboratory Results Laboratory Tests 06/22/25 10:20 06/23/25 05:11 Chemistry Test 06/23/25 05:11 Calcium Level 9.6 mg/dL (8.7-10.4) Urinalysis Test 06/20/25 14:58 Urine Color Yellow (Yellow) Urine Clarity Turbid (Clear) H Urine pH 6.0 (5.0-9.0) Urine Specific [place] 1.029 (1.001-1.035) Urine Protein 1+ (Negative) H Urine Ketones Negative (Negative) Urine Blood Negative /uL (Negative) Urine Nitrite Negative (Negative) Urine Bilirubin Negative (Negative) Urine Urobilinogen Normal mg/dL (Negative) Urine Leukocyte Esterase 3+ /uL (Negative) Urine RBC 15 /hpf (0 - 4) Urine Microscopic WBC 45 /HPF (0-5) H Urine Squamous Epithelial Cells Few /hpf (<5) Urine Bacteria None seen /hpf (None Seen) Urine Hyaline Casts Few /lpf (0 - 2) Urine Mucus Few (None Seen) Urine Glucose Normal mg/dL (Normal) Microbiology Microbiology Date/Time Source Procedure Growth Status 06/20/25 22:07 Blood Blood Culture - Preliminary NO GROWTH AFTER 48 HOURS OF INCUBATION. Resulted 06/20/25 14:58 Voided Urine Urine Culture - Preliminary Resulted Labs and/or images reviewed: Labs reviewed by me, Image(s) reviewed by me Assessment/Plan Assessment/Plan Covering: Syncope and collapse due to beta-william induced sinus bradycardia; resulting in fall with injury Fall resulting in superficial laceration of the scalp Superficial laceration of the scalp; healing Beta-william induced sinus bradycardia Hypertensive heart disease with chronic diastolic heart failure; not in exacerbation Complicated UTI in the setting of history of ESBL E coli complicated UTI Suspected sepsis due to complicated UTI Suspected CALEB in the setting of suspected sepsis; most likely vasomotor nephropathy Gastritis with history of gastric ulcer Obstructive sleep apnea on CPAP Mixed dyslipidemia Morbid obesity Mixed Gram-positive kari in urine cultures Was on IV meropenem due to history of ESBL E coli; will be discharged on Bactrim DS, based on 2019 urine culture Reviewed echocardiogram; results as below Was on IV fluids Avoid nephrotoxic agents Was on telemetry Fall precautions To resume antihypertensive medications; to continue home statin and pantoprazole Reviewed available lab work and imaging studies including carotid duplex ultrasound Counseled the patient importance of adopting healthy lifestyle with diet and exercise in order to lose weight Cardiology evaluated the patient: To avoid/stop any AV node blocking agents To follow up with discharge clinic/PCP within week Echocardiogram results,: MILD LVH AND MILD LV DIASTOLIC DYSFUNCTION LV EF IS 65% NORMAL VALVES NO EFFUSION Late Entry. This medical document was created using an electronic medical record system with computerized dictation system. Although this document has been carefully reviewed, there might still be some phonetic and typographical errors. These areas are purely typographical due to imperfections of the software programs, and do not reflect any compromise in the patient's medical care. Plan discussed with: Patient, Other (Nurse) My Orders Orders - NESTOR CHAVIRA MD Procedure Category Date Status Time Polyethylene Glycol PHA 06/22/25 In Process 17g Powder (Miralax 09:45 Date of Service: Jun 23, 2025 Billing Provider: NESTOR CHAVIRA MD Common Visit Codes: [id number] INP/OBS CARE(MOD) NESTOR CHAVIRA MD Jun 23, 2025 08:19
[2025-06-23] MEDS ORDERED: BACDST PO (10:06)
--- NOTE | 2025-06-23 10:09 | DVHDS2 ---
Discharge Summary Date of Admission Jun 21, 2025 at 00:06 Date of Discharge: Jun 23, 2025 Admitting Diagnosis Syncope and collapse resulting in scalp laceration Wounds: Laceration of scalp; present on admission Labs/Diagnostic Data: Laboratory Results Test 06/23/25 05:11 06/22/25 10:20 06/21/25 12:02 06/20/25 20:55 Sodium Level 139 mmol/L (136-145) Potassium Level 4.2 mmol/L (3.5-5.1) Chloride Level 102 mmol/L (98-107) Carbon Dioxide Level 30 mmol/L (20-31) Anion Gap 7 (5-15) Blood Urea Nitrogen 14 mg/dL (9-23) Creatinine 0.73 mg/dL (0.550-1.02) Glomerular Filtration Rate Calc 91 mL/min (>90) BUN/Creatinine Ratio 19.2 (10.0-20.0) Serum Glucose 102 mg/dL (74-106) Calcium Level 9.6 mg/dL (8.7-10.4) White Blood Count 5.6 10^3/uL (4.4-10.8) Red Blood Count 4.68 10^6/uL (4.0-5.20) Hemoglobin 13.7 g/dL (12.2-16.2) Hematocrit 40.3 % (36.0-46.0) Mean Corpuscular Volume 86.2 fL (80.0-100.0) Mean Corpuscular Hemoglobin 29.3 pg (28.0-32.0) Mean Corpuscular Hemoglobin Concent 34.0 g/dL (32.0-36.0) Red Cell Distribution Width 14.5 % (11.8-14.3) Platelet Count 201 10^3/uL (140-450) Mean Platelet Volume 8.5 fL (6.9-10.8) Neutrophils (%) (Auto) 57.1 % (37.0-80.0) Lymphocytes (%) (Auto) 26.7 % (10.0-50.0) Monocytes (%) (Auto) 12.9 % (0.0-12.0) Eosinophils (%) (Auto) 3.0 % (0.0-7.0) Basophils (%) (Auto) 0.3 % (0.0-2.0) Neutrophils # (Auto) 3.2 10 ^3/uL (1.6-8.6) Lymphocytes # (Auto) 1.5 10 ^3/uL (0.4-5.4) Monocytes # (Auto) 0.7 10 ^3/uL (0-1.3) Eosinophils # (Auto) 0.2 10 ^3/uL (0-0.8) Basophils # (Auto) 0 10 ^3/uL (0-0.2) Nucleated Red Blood Cells 0.1 % Lactic Acid Level 0.9 mmol/L (0.4-2.0) Prothrombin Time 10.3 sec (9.3-11.8) Prothrombin Time INR 0.97 (0.9-1.15) Activated Partial Thromboplast Time 23.0 SEC (24.5-34.5) Test 06/20/25 17:23 06/20/25 15:55 06/20/25 15:03 06/20/25 14:58 Hemoglobin A1c 5.5 % A1C (<5.7) Phosphorus Level 3.4 mg/dL (2.4-5.1) Magnesium Level 2.1 mg/dL (1.6-2.6) Troponin I High Sensitivity 5 ng/L (</=34) C-Reactive Protein High Sensitivity 0.31 mg/dL (<1.0) Triglycerides Level 69 mg/dL (< 150) Cholesterol Level 202 mg/dL (< 200) LDL Cholesterol 115 mg/dL (< 100) HDL Cholesterol 80 mg/dL (40-59) Lipase 32 U/L (12-53) Vitamin B12 Level 469 pg/mL (211-911) Vitamin D 25-Hydroxy 51.8 ng/mL (30.0-100) Thyroid Stimulating Hormone (TSH) 1.64 uIU/mL (0.55-4.78) Total Bilirubin 0.5 mg/dL (0.2-1.0) Aspartate Amino Transferase (AST) 37 U/L (13-40) Alanine Aminotransferase (ALT) 41 U/L (7-40) Alkaline Phosphatase 71 U/L (46-116) Total Protein 7.3 g/dL (5.7-8.2) Albumin 4.5 g/dL (3.2-4.8) POC Glucose 103 mg/dl (70-106) Urine Color Yellow (Yellow) Urine Clarity Turbid (Clear) Urine pH 6.0 (5.0-9.0) Urine Specific [place] 1.029 (1.001-1.035) Urine Protein 1+ (Negative) Urine Ketones Negative (Negative) Urine Blood Negative /uL (Negative) Urine Nitrite Negative (Negative) Urine Bilirubin Negative (Negative) Urine Urobilinogen Normal mg/dL (Negative) Urine Leukocyte Esterase 3+ /uL (Negative) Urine RBC 15 /hpf (0 - 4) Urine Microscopic WBC 45 /HPF (0-5) Urine Squamous Epithelial Cells Few /hpf (<5) Urine Bacteria None seen /hpf (None Seen) Urine Hyaline Casts Few /lpf (0 - 2) Urine Mucus Few (None Seen) Urine Glucose Normal mg/dL (Normal) Urine Opiates Screen Neg (NEGATIVE) Urine Fentanyl Screen Neg (NEGATIVE) Urine Barbiturates Screen Neg (NEGATIVE) Urine Phencyclidine Screen Neg (NEGATIVE) Urine Amphetamines Screen Neg (NEGATIVE) Urine Benzodiazepines Screen Neg (NEGATIVE) Urine Cocaine Screen Neg (NEGATIVE) Urine Cannabinoids Screen Neg (NEGATIVE) Other Laboratory Tests 06/23/25 05:11 06/22/25 10:20 Brief Hx & Hospital Course: Covering: A 65 year old male patient; multiple presented emergency with syncope and collapse resulting scalp laceration. Details as below. Please kindly refer to EMR for further details. Syncope and collapse due to beta-william induced sinus bradycardia; resulting in fall with injury Fall resulting in superficial laceration of the scalp Superficial laceration of the scalp; healing Beta-william induced sinus bradycardia Hypertensive heart disease with chronic diastolic heart failure; not in exacerbation Complicated UTI in the setting of history of ESBL E coli complicated UTI Suspected sepsis due to complicated UTI Suspected CALEB in the setting of suspected sepsis; most likely vasomotor nephropathy Gastritis with history of gastric ulcer Obstructive sleep apnea on CPAP Mixed dyslipidemia Morbid obesity Mixed Gram-positive kari in urine cultures Was on IV meropenem due to history of ESBL E coli; will be discharged on Bactrim DS, based on 2019 urine culture Reviewed echocardiogram; results as below Was on IV fluids Avoid nephrotoxic agents Was on telemetry Fall precautions To resume antihypertensive medications; to continue home statin and pantoprazole Reviewed available lab work and imaging studies including carotid duplex ultrasound Counseled the patient importance of adopting healthy lifestyle with diet and exercise in order to lose weight Cardiology evaluated the patient: To avoid/stop any AV node blocking agents To follow up with discharge clinic/PCP within week Echocardiogram results,: MILD LVH AND MILD LV DIASTOLIC DYSFUNCTION LV EF IS 65% NORMAL VALVES NO EFFUSION Late Entry. This medical document was created using an electronic medical record system with computerized dictation system. Although this document has been carefully reviewed, there might still be some phonetic and typographical errors. These areas are purely typographical due to imperfections of the software programs, and do not reflect any compromise in the patient's medical care. Consults/Reason for consult Cardiology for syncope Condition at Discharge: Stable Final Diagnosis/Problems List Syncope and collapse due to beta-william induced sinus bradycardia; resulting in fall with injury Fall resulting in superficial laceration of the scalp Superficial laceration of the scalp; healing Beta-william induced sinus bradycardia Hypertensive heart disease with chronic diastolic heart failure; not in exacerbation Complicated UTI in the setting of history of ESBL E coli complicated UTI Suspected sepsis due to complicated UTI Suspected CALEB in the setting of suspected sepsis; most likely vasomotor nephropathy Gastritis with history of gastric ulcer Obstructive sleep apnea on CPAP Mixed dyslipidemia Morbid obesity Discharge Disposition: Home Discharge Instruct/Medications Diet: Cardiac 2g Na,low cholest Activity: No Restrictions, As Tolerated Follow Up/Referral: Dr. Chavira on Tuesday06/24/[address] Harvey for recurrent UTIs in 2 to 4 weeks. Medications: Continue home medications except oral antibiotics. Sent Bactrim DS BID for 7 days based on 2019 UCx. Scheduled Baclofen (Baclofen), 10 MG PO BID, (Reported) Hydrochlorothiazide (Hydrochlorothiazide), 12.5 MG PO DAILY, (Reported) Pantoprazole Sodium Sesquihydr (Pantoprazole Sodium), 40 MG PO BID Simvastatin (Simvastatin), 40 MG PO DAILY, (Reported) Sucralfate (Carafate), 1 GM OR QIDACHS Sulfamethoxazole W/Trimethopri (Bactrim Ds Tablet), 1 TAB PO BID Discontinued Medications Nitrofurantoin Monohyd Macro (Nitrofurantoin Monohydrat), 1 CAP PO BID Discharge Statement: "Patient was advised to return to the ER or call 911 if any headaches, dizziness, shortness of breath, chest pain, abdominal pain, bleeding, fevers, or worsening of medical condition. Patient was counseled about treatment plan, medications, possible side effects, patientverbalized understanding. All questions were answered to the best of my ability. This discharge took greater then 30 minutes in planning, reviewing documentation, counseling the patient, and discussing with other team members." Date of Service: Jun 23, 2025 Billing Provider: NESTOR CHAVIRA MD Common Visit Codes: 18208-JXH/OBS DISCH DAY >30min NESTOR CHAVIRA MD Jun 23, 2025 10:09
== END 2025-06-23 13:50 | disposition home or self-care (01) | DRG 853 ==
LOC: ER 14:48 → OVERFLOW 06-21 00:06 → TELE-CENTR 06-21 03:08
PROVIDERS: ADMIT Internal Medicine; ATTEND Internal Medicine
PROC: 0WQ0XZZ Repair Head, External Approach (ICD-10-PCS; principal; 2025-06-20)
PROC: 5A09357 Assistance with Respiratory Ventilation, Less than 24 Consecutive Hours, Continuous Positive Airway Pressure (ICD-10-PCS; 2025-06-22)
DX: A41.9 Sepsis, unspecified organism (principal); N17.0 Acute kidney failure with tubular necrosis; N39.0 Urinary tract infection, site not specified; I50.32 Chronic diastolic (congestive) heart failure; I11.0 Hypertensive heart disease with heart failure; E66.01 Morbid (severe) obesity due to excess calories; E78.2 Mixed hyperlipidemia; G47.33 Obstructive sleep apnea (adult) (pediatric); S01.01XA Laceration without foreign body of scalp, initial encounter; K29.70 Gastritis, unspecified, without bleeding; W01.0XXA Fall on same level from slipping, tripping and stumbling without subsequent striking against object, initial encounter; R29.6 Repeated falls; I45.10 Unspecified right bundle-branch block; R74.01 Elevation of levels of liver transaminase levels; E66.812 Obesity, class 2; R00.1 Bradycardia, unspecified; T50.995A Adverse effect of other drugs, medicaments and biological substances, initial encounter; Y93.89 Activity, other specified; Y92.89 Other specified places as the place of occurrence of the external cause; Y99.8 Other external cause status; Z80.3 Family history of malignant neoplasm of breast; Z83.3 Family history of diabetes mellitus; Z82.49 Family history of ischemic heart disease and other diseases of the circulatory system; Z87.891 Personal history of nicotine dependence; Z88.6 Allergy status to analgesic agent; Z88.5 Allergy status to narcotic agent; Z88.0 Allergy status to penicillin; Z68.38 Body mass index [BMI] 38.0-38.9, adult; Z86.19 Personal history of other infectious and parasitic diseases; Z87.11 Personal history of peptic ulcer disease
CPT/HCPCS: 36415; 70450; 72125; 80048; 80053; 80061; 80307; 81001; 82306; 82607; 82962; 83036; 83605; 83690; 83735; 84100; 84443; 84484; 85025; 85610; 85730; 86141; 87040; 87086; 93005; 93306; 93886; 94660; 96365; 97116; 97163; 97530; G0378; J2185

== ENCOUNTER 2025-08-19 12:56 | Outpatient (CLI) | payer OTHER ==
[~2025-08-19 12:56] MED LIST changes: +BACDST PO; -NITR100C6 PO
== END 2025-08-19 17:00 | disposition home or self-care (01) ==
LOC: Rad HDHVI 12:56
PROVIDERS: ATTEND Internal Medicine Cardiovascular Disease
DX: I34.0 Nonrheumatic mitral (valve) insufficiency (principal); R55 Syncope and collapse
CPT/HCPCS: 93306

== ENCOUNTER 2025-09-02 13:48 | Outpatient (CLI) | payer OTHER ==
[~2025-09-02] VITALS: Ht 170.2 cm; Wt 111.1 kg
== END 2025-09-02 17:00 | disposition home or self-care (01) ==
LOC: Rad HDHVI 13:48
PROVIDERS: ATTEND Internal Medicine Cardiovascular Disease
DX: R00.0 Tachycardia, unspecified (principal); I49.3 Ventricular premature depolarization; I49.1 Atrial premature depolarization; I10 Essential (primary) hypertension; R07.89 Other chest pain; R55 Syncope and collapse; R94.31 Abnormal electrocardiogram [ECG] [EKG]; E78.00 Pure hypercholesterolemia, unspecified; F17.210 Nicotine dependence, cigarettes, uncomplicated; Z82.49 Family history of ischemic heart disease and other diseases of the circulatory system
CPT/HCPCS: 78452; 93017; A9500; 96374

== ENCOUNTER → 2025-09-24 | Outpatient (CLI) | payer OTHER ==
[2025-09-24 10:52] LABS: Hematocrit 41.2 % (36.0-46.0); Hemoglobin 14.0 g/dL (12.2-16.2); Mean Corpuscular Hemoglobin 29.7 pg (28.0-32.0); Mean Corpuscular Volume 87.3 fL (80.0-100.0); Nucleated Red Blood Cells % 0.1 %
[2025-09-24 11:01] LABS: Urine Protein, UAD Negative (Negative)
[2025-09-24 11:17] LABS: Alanine Aminotransferase 21 U/L (7-40); Albumin 4.6 g/dL (3.2-4.8); Alkaline Phosphatase 72 U/L (46-116); Anion Gap 9 (5-15); BUN/Creatinine Ratio 20.5 (10.0-20.0); Bilirubin, Total 0.4 mg/dL (0.2-1.0); Blood Urea Nitrogen 16 mg/dL (9-23); Calcium 9.8 mg/dL (8.7-10.4); Chloride 104 mmol/L (98-107); Cholesterol 194 mg/dL (< 200); Glucose 93 mg/dL (74-106); Potassium 3.9 mmol/L (3.5-5.1); Sodium 144 mmol/L (136-145); Total Protein 7.0 g/dL (5.7-8.2); Triglycerides 65 mg/dL (< 150)
[2025-09-24 11:20] LABS: Carbon Dioxide 31 mmol/L (20-31); HDL Cholesterol 86 mg/dL (40-59)
== END | disposition home or self-care (01) ==
LOC: LAB 10:15
PROVIDERS: ATTEND Internal Medicine Hematology & Oncology
DX: I10 Essential (primary) hypertension (principal); K21.9 Gastro-esophageal reflux disease without esophagitis; E78.5 Hyperlipidemia, unspecified; R73.03 Prediabetes
CPT/HCPCS: 36415; 80053; 80061; 81001; 83036; 84439; 84443; 85025; 87086